=== PATIENT | male | born 1980 | race Caucasian/White ===

== ENCOUNTER 2016-11-01 10:38 | Observation (INO) | payer OTHER ==
[2016-11-01] MEDS ORDERED: diPHENhydraMINE PO* 25 MG ONE (12:08)
[2016-11-01] MEDS ORDERED: Diazepam TAB(*) 5 MG ONE (12:08)
[2016-11-01] MEDS ORDERED: VERAPAMIL 2.5 MG/ML 4 ML VIAL ONE (12:17)
[2016-11-01] MEDS ORDERED: fentaNYL* 50 MCG/ML 2 ML VIAL (100 MCG VIAL) ONE ×3 (12:17→13:51)
[2016-11-01] MEDS ORDERED: Heparin(*) 1000 UNIT/ML 10 ML VIAL CATH LAB IV ONE (12:17)
[2016-11-01] MEDS ORDERED: Midazolam* 1 MG/ML 5 ML VIAL (5 MG) ONE (12:17)
[2016-11-01] MEDS ORDERED: Heparin 2 UNITS/ML IVPREMIX* 2,000 ML IV ONE (12:18)
[2016-11-01] MEDS ORDERED: Iohexol 350 (CONTRAST) 200 ML MDV IV ONE (12:18)
[2016-11-01] MEDS ORDERED: Lidocaine 1% INJ* 10 MG/ML 30 ML SDV ONE (12:18)
[2016-11-01] MEDS ORDERED: nitroGLYCERIN DRIP* 250 ML ONE (12:18)
[2016-11-01] MEDS ORDERED: Ticagrelor* 90 MG TAB PO ONE (13:30)
[2016-11-01] MEDS ORDERED: Nitroglycerin TAB 0.4 MG* 0.4 MG TAB SL PRN ×2 (14:46→15:15)
[2016-11-01] MEDS: Aspirin Low Dose CHEW TAB* 81 MG PO SCH (16:18)
[2016-11-01] MEDS: Carvedilol TAB* 6.25 MG PO SCH (16:18)
[2016-11-01] MEDS ORDERED: INSULIN REGULAR SUBCUT SCH (16:30)
[2016-11-01] MEDS: Pantoprazole TAB (NF) 40 MG TAB PO SCH (17:45)
[2016-11-02 05:47] LABS: Hematocrit 49 % (42-52); Hemoglobin 16.8 g/dl (14.0-18.0); Mean Corpuscular HGB Conc 34 g/dl (31-36); Mean Corpuscular Hemoglobin 30 pg (27-31); Mean Corpuscular Volume 88 fL (80-94); Mean Platelet Volume 9 um3 (7.4-10.4); Red Blood Count 5.54 10^6/ul (4.0-5.4); Red Cell Distribution Width 13 % (10.5-15); White Blood Count 8.3 10^3/ul (3.5-10.8)
[2016-11-02 06:08] LABS: Albumin 4.3 g/dL (3.2-5.2); BUN/Creatinine Ratio 18.9 (8-20); Calcium 9.4 mg/dL (8.6-10.3); EGFR Non-African American 90.2 (>60); Globulin 3.3 g/dL (2-4); HDL Cholesterol 28.3 mg/dL; Potassium 3.7 mmol/L (3.5-5.0); Total Bilirubin 0.5 mg/dL (0.2-1.0); Total Protein 7.6 g/dL (6.4-8.9)
[2016-11-02] MEDS: Carvedilol TAB* 6.25 MG PO SCH (08:12)
[2016-11-02] MEDS: Aspirin Low Dose CHEW TAB* 81 MG PO SCH (08:13)
[2016-11-02] MEDS: Pantoprazole TAB (NF) 40 MG TAB PO SCH (08:13)
[2016-11-02] MEDS ORDERED: Citalopram TAB* 20 MG PO SCH (09:00)
[2016-11-02] MEDS ORDERED: Aspirin Low Dose CHEW TAB* 81 MG PO SCH (09:00)
[2016-11-02] MEDS ORDERED: CMCS: Prasugrel (NF) 10 MG PO SCH (09:00)
[2016-11-02] MEDS ORDERED: Ramipril CAP* 2.5 MG PO SCH (09:00)
[2016-11-02] MEDS ORDERED: Atorvastatin* 40 MG TAB PO SCH (09:00)
[2016-11-02 09:15] VITALS: BP 145/90
[2016-11-02] MEDS ORDERED: buPROPion TAB* 100 MG PO SCH (21:00)
--- NOTE | 2016-11-02 22:18 | DS ---
DISCHARGE SUMMARY: DATE OF ADMISSION: 11/01/16 DATE OF DISCHARGE: 11/02/16 PRIMARY CARE PHYSICIAN: TRACEY Daniels WATER SOFTENER SERVICE SUPERVISOR: Vignesh Ybarra DO DISCHARGE DIAGNOSES: 1. Unstable angina 2. Prior coronary artery stenting. 3. Diabetes type 2. 4. Morbid obesity. 5. Hyperlipidemia. 6. Obstructive sleep apnea. CONDITION ON DISCHARGE: Stable. PROCEDURES: Cardiac cath, stent placement, LAD with IVUS guidance 3.25 x 23 Xience drug-eluting stent, right radial artery access. DISCHARGE MEDICATIONS: Unchanged. 1. Aspirin 81 mg daily. 2. Lipitor 40 daily. 3. Wellbutrin 100 mg b.i.d. 4. Carvedilol 6.25 b.i.d. 5. Celexa 20 mg q.a.m. 6. Nitroglycerin 0.4 sublingual p.r.n. 7. Protonix 40 mg daily. 8. Effient 10 mg daily. 9. Altace 2.5 mg daily. 10. The patient has a self adjusted insulin pump. ACTIVITY: No strenuous exertion for 2 days to minimize by arm use without lifting for 2 days. Follow up as scheduled with Dr. Ybarra for wound check. To walk 30 minutes briskly daily. HISTORY: He presented with new onset of angina, functional class 3, stress imaging was high risk with anterior ischemia. He underwent outpatient catheterization. He has had previous stenting of the LAD in the mid and proximal portion, a year ago had repeat intervention for proximal stent in- stent restenosis and placement of a new more proximal LAD stent. LABORATORY DATA: CBC on 11/01/16 was normal, remained normal post PCI. Chemistry, 11/01/16: Random sugar 116, normal potassium, creatinine 0.87. Cholesterol 134, triglycerides 360, LDL 34, HDL 28.3 on Lipitor 40. EKG - 11/01/16: Normal tracing, post PCI unchanged. HOSPITAL COURSE: He underwent outpatient catheterization via the radial approach without complications, was found to have an 80% in-stent restenosis in the mid LAD stent, which was evaluated with IVUS. The proximal stents had no restenosis. Distal reference diameter was 3.3 x 3.8, the mid LAD stent placed 2 years ago was a 2.75 mm stent. A 3.25 x 23 Xience drug-eluting stent was therefore deployed and post dilated to high pressure, 18 atmospheres, after which minimal luminal diameter was approximately 3 x 3 with an area of 6.25 square millimeters with excellent apposition, and no residual significant stenosis with normal flow. Postprocedure, he has been without chest pain, heart failure, arrhythmias. He has been discharged to outpatient followup. His restenosis was likely due to a combination of negative remodelling and an undersized stent. CC: TRACEY Daniels; Vignesh Ybarra DO* [id number]/[facility] #: [id number] [facility]
--- NOTE | 2016-11-03 19:20 | CATH ---
CC: TRACEY Daniels; Dr. Ybarra Amended report to enter date of procedure. STENT REPORT: DATE OF PROCEDURE: 11/01/16. PRIMARY: TRACEY Daniels. LOSS PREVENTION OPERATIONS MANAGER: Dr. Ybarra. PROCEDURES: Right radial artery access, bilateral selective coronary cineangiography, left heart catheterization. IVUS evaluation, left main and LAD. Stent placement, mid LAD, 3.25 x 23 Xience drug-eluting stent. HISTORY: A 35-year-old type 2 diabetic with morbid obesity, with previous LAD intervention on 05/10/15 with placement of 3 drug-eluting stents with 2 in the proximal and 1 in the mid LAD. The mid LAD stent was a 2.75 x 16. Proximally, he had a 3 x 20 and 3 x 8. He had redo cath, 01/04, with in-stent restenosis as well as a more proximal LAD stenosis. He received a 2.75 x 12 Xience drug- eluting stent, the in-stent restenosis was treated with a 2.5 x 20 cutting balloon after which a 2.5 x 12 Xience drug-eluting stent was deployed. He now presents with 2 weeks of class III angina, Lexiscan was high risk with anterior wall ischemia. He was referred for catheterization. PROCEDURE ACCESS: Right radial artery. SHEATH: 6-F slender. MEDICATIONS: 1. Subcu lidocaine. 2. IV Versed. 3. IV fentanyl. 4. Heparin 3000 units. 5. Verapamil 3 mg. 6. Nitroglycerin 300 mcg IA. 7. Additional heparin 5000 units. 8. Brilinta 180 mg p.o. loading dose. 9. IC nitroglycerin 200 mcg pre-IVUS. DIAGNOSTIC CATHETERS: 5F TIG4, 6FL 3.5. LV gram was not performed. The aortic valve was crossed with a diagnostic catheter. After diagnostic angiography, IVUS evaluation of the LAD was performed using a 3-Wolof OptiCross catheter through a 6FL 3.5 Voda over a 14 BMW wire. Initial IVUS demonstrated distal reference diameter of 3.3 x 3.8 for an area of 7.17 sq mm, the minimal luminal area within the mid LAD stent was 3.38 sq mm, approximately 2 x 2 mm. There was negative remodelling at the site of in-stent restenosis as well as undersizing of the stent. A 3.5 x 23 Xience drug-eluting stent was deployed across the in-stent restenosis and then postdilated with a noncompliant balloon to 16 atmospheres. Because of incomplete expansion, it was then dilated to 18 atmospheres. Repeat IVUS demonstrated a minimal luminal area of 6.25 with 2.7 x 2.9 mm diameters with excellent pad position. IVUS showed no dissection. The more proximal LAD stents showed good expansion and apposition. The most proximal stent is somewhat undersized at approximately 3 x 3 with a proximal reference diameter of 4 x 4. There is; however, no significant luminal stenosis. HEMODYNAMICS: Initial BP 150/81, LV 109/88, no aortic valve gradient on pullback. ANGIOGRAPHY: RCA: The RCA is felt to be small, nondominant, supplies only an RV branch. It has no stenosis. Left main: The left main is very short, has no stenosis. LAD: The LAD is moderate, has previously placed proximal stents which jailed the first diagonal. The mid LAD stent has a proximal, gradually tapering stenosis which is maximal at 80% to 90% in mid portion. Distally the LAD wraps around the apex, has LAWRENCE-2 flow. Circumflex: The circumflex is dominant, large, with a trivial ramus, large first marginal, smaller second marginal, it ends with small circumflex PDA which is relatively short as the LAD supplies the distal third to half of the infraapical segment. After IVUS-guided mid LAD stent placement, there was negative residual stenosis , normal antegrade flow, no dissection. Distal flow is LAWRENCE-3. CONCLUSION: 1. High-grade late in-stent restenosis mid LAD, excellent angiographic result with IVUS-guided repeat drug-eluting stent placement with upsizing of the stent. Restenosis in part due to undersizing and in part due to negative remodelling. The proximal LAD stents have no stenosis, but the most proximal one is undersized. 2. Normal left-sided hemodynamics. 3. Successful right radial artery access. [id number]/[facility] #: [id number] SOURAV
== END 2016-11-02 11:21 | disposition home or self-care (01) ==
LOC: CHICATH 10:38 → INTOOBSV 14:16 → ICU 14:16
PROVIDERS: ADMIT Internal Medicine Cardiovascular Disease; ATTEND Internal Medicine Cardiovascular Disease
DX: I20.0 Unstable angina (principal); E11.9 Type 2 diabetes mellitus without complications; E78.5 Hyperlipidemia, unspecified; E66.01 Morbid (severe) obesity due to excess calories; G47.33 Obstructive sleep apnea (adult) (pediatric); Z95.5 Presence of coronary angioplasty implant and graft; Z79.899 Other long term (current) drug therapy
CPT/HCPCS: 36415; 80048; 80053; 80061; 85025; 85610; 85730; 87641; 93005; 93458; A9270-GY; C1725; C1753; C1769; C1876; C1887; C9600-LD; G0378; J1644; J2250; J3010

== ENCOUNTER 2018-09-20 06:28 | Day surgery (SDC) | payer OTHER ==
--- NOTE | 2018-09-06 06:44 | HP ---
CC: Roe Velez MD; Vignesh Ybarra DO; [facility] * ADMISSION HISTORY AND PHYSICAL: DATE OF ADMISSION: 09/20/18 ATTENDING SURGEON: Christina Mario MD * (MORRIS Guthrie, dictating) CHIEF COMPLAINT: Papillary carcinoma, left thyroid. HISTORY OF PRESENT ILLNESS: This is a 37-year-old morbidly obese diabetic male on insulin pump with history of coronary artery disease, who was referred by his manager cable Dr. Ybarra for a carotid arterial duplex study for the indication of generalized weakness. That study was done on 03/06/18 and did show a moderate (greater than 50%) right internal carotid artery stenosis. The left side was less than 50% stenosis. An incidental finding was that of a suspicious left thyroid lobe lesion. A dedicated ultrasound of the thyroid on 04/09/18 showed a high suspicion lesion in the left lower lobe measuring 0.9 x 0.9 x 1.3 cm with calcifications. There was also an intermediate suspicious lesion in the left upper lobe measuring 0.7 x 0.8 x 0.1 cm and a high suspicion lesion in the right mid thyroid which is described as heterogeneous and hypoechoic measuring 0.8 x 0.8 x 0.7 cm with microcalcifications (this latter lesion will be observed as it does not meet the criteria for biopsy in as much as it is less than 1 cm in size). An ultrasound-guided biopsy of the left lower lobe lesion on 04/25/18 returned suspicious for papillary carcinoma (see separate report). The patient has been seen by Dr. Velez who follows him for his diabetes management and also by Dr. Mario in the thyroid clinic. Her exam was notable for being unable to palpate any distinct masses in the thyroid gland. There is no known family history of thyroid or endocrine cancer. The patient has not had any symptoms of hyper or hypothyroidism other than weight gain which has been a chronic but stable problem. He was seen by his manager cable, Dr. Ybarra, who felt that no additional testing was necessary prior to proceeding with surgery (see separate note). He has also been seen by his primary care office and I reviewed those instructions with him as well. The patient understands the indications for surgery, the risks, benefits and alternatives and would like to proceed as scheduled with left thyroid lobectomy. PAST MEDICAL HISTORY: 1. Type 2 diabetes (on insulin pump). 2. Morbid obesity. 3. 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 4. Depression. PAST SURGICAL HISTORY: Includes: 1. 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 2. Bilateral carpal tunnel release. CURRENT MEDICATIONS: 1. Humulin U 500 via insulin pump with the basal rate ranging between 1 to 2 units per hour and bolus does seem based on carbohydrate counting at meals and snacks ranging from 5 to 12 units. He was instructed by Dr. Velez's office to decrease his basal rate to one half the morning of surgery and to hold boluses which will be managed by the Anesthesia and operating team. 2. Effient 5 mg once daily (his last dose will be 09/13/18). 3. Aspirin 81 mg once daily which he will continue during the perioperative period. 4. Fish oil 1000 mg b.i.d. which he will hold for 3 to 5 days preoperatively. 5. Escitalopram 20 mg once daily. 6. Bupropion 100 mg b.i.d. 7. Atorvastatin 40 mg daily. 8. Ramipril 2.5 mg daily. 9. Carvedilol 6.25 mg b.i.d. 10. Victoza 1.8 mg subcutaneously daily (the patient will hold for 24 hours before surgery). 11. Omeprazole 40 mg once daily. 12. Qeac-ilk-vgsyoui potassium chloride 99 mg once daily. 13. He also takes vitamin D, multivitamin, and glucosamine supplements. DRUG ALLERGIES: METFORMIN (GI side effects), GLIPIZIDE (GI side effects), ERYTHROMYCIN (GI side effects), BRILINTA (shortness of breath). FAMILY HISTORY: Negative for anesthesia problems, bleeding or clotting disorders. SOCIAL HISTORY: The patient lives with his significant other who is present today. He works in [employer]. He quit smoking in 2014. He drinks less than 1 drink per week. He denies any recreational drug use. REVIEW OF SYSTEMS: General: No recent constitutional symptoms or acute illnesses other than described above. HEENT: No additions. Cardiovascular: No chest pain, palpitations. See separate note from Dr. Ybrara. He does have a prescription for sublingual nitroglycerin but has not required it. Respiratory: No history of asthma, chronic cough or shortness of breath. GI: No problems reported. He did undergo a colonoscopy 7 years ago but that was a normal study and with no significant interval symptoms. : No problems reported. Endocrine: See the note from Jerald Nolasco at Dr. Velez's office. His most recent A1c was 8.2. Hematological/Oncological: As above per HPI. No additions. Musculoskeletal: No problems reported. Neuro/Psych: No additions. PHYSICAL EXAMINATION GENERAL: Well-nourished, morbidly obese male, in no acute distress. VITAL SIGNS: Height 70 inches, weight 310 pounds, BMI 48.5. Temperature 99.1, blood pressure 140/82, pulse 84, respirations 18. HEENT: Pupils are equal, round, and reactive. EOMs intact. No conjunctival pallor. Oropharynx: Teeth in good repair. No intraoral lesions. NECK: No lymphadenopathy, thyromegaly or masses. No discrete palpable nodules. No palpable lymphadenopathy. LUNGS: Clear to auscultation. No wheezes. HEART: Regular rate and rhythm. No murmur noted. ABDOMEN: Soft, nontender to palpation. No palpable masses or organomegaly. GENITALIA: Not done. RECTAL: Not done. BACK: No spinous process or CVA tenderness. EXTREMITIES: No edema. NEUROLOGICAL: Grossly intact. SKIN: Warm and dry. No suspicious rashes or lesions. 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 PLAN: Left thyroid lobectomy. MORRIS GUTHRIE [id number]/[facility] #: [id number] [facility]ITALGutierrez
[~2018-09-20 06:28] MED LIST: Buffered Lidocaine 0.9% SYRIN* 5 ML/SYR SYRINGE INTRADERM ONE; Famotidine IV* 10 MG/ML 2 ML (20 mg) IV ONE; Ketorolac INJ* 30 MG/ML 1 ML VIAL IV PUSH ONE
[2018-09-20] MEDS ORDERED: ceFAZolin 1 GM in Dextrose (*) 1 GM/50 ML BAG IVPB ONE (07:23)
[2018-09-20] MEDS ORDERED: Famotidine IV* 10 MG/ML 2 ML (20 mg) ONE (07:23)
[2018-09-20] MEDS ORDERED: ceFAZolin 2 GM PREMIX in ORs 2 GM/50 ML BAG IVPB ONE (07:23)
[2018-09-20] MEDS ORDERED: Midazolam* 1 MG/ML 5 ML VIAL (5 MG) ONE (08:04)
[2018-09-20] MEDS ORDERED: Lidocaine 2% PF * 5 ML VIAL ONE (08:04)
[2018-09-20] MEDS ORDERED: Propofol* 10 MG/ML 20 ML BTL ONE (08:04)
[2018-09-20] MEDS ORDERED: Rocuronium* 10 MG/ML VIAL ONE ×2 (08:04→11:09)
[2018-09-20] MEDS ORDERED: fentaNYL* 50 MCG/ML 5 ML VIAL (250 MCG VIAL) ONE (08:04)
[2018-09-20] MEDS ORDERED: Bupivacaine 0.25% EPI 200,000* 30 ML SDV ONE (08:09)
[2018-09-20] MEDS ORDERED: Phenylephrine INJ* 10 MG/ML 1 ML VIAL (10 MG) ONE ×2 (09:31→10:07)
[2018-09-20] MEDS ORDERED: fentaNYL* 50 MCG/ML 2 ML VIAL (100 MCG VIAL) ONE ×5 (09:59→13:02)
[2018-09-20] MEDS ORDERED: Glycopyrrolate IV* 0.2 MG/ML 1 ML VIAL ONE (10:03)
[2018-09-20] MEDS ORDERED: PROCHLORPERAZINE INJ 5 MG/ML 2 ML VIAL IV PRN (11:24)
[2018-09-20] MEDS ORDERED: Naloxone* 0.4 MG/ML 1 ML VIAL IV PRN (11:24)
[2018-09-20] MEDS ORDERED: HYDROcodone/ACETAMIN 5-325 MG* 1 TAB PO PRN (11:24)
[2018-09-20] MEDS ORDERED: oxyCODONE/Acetamin 5/325 MG* TAB PO PRN (11:24)
[2018-09-20] MEDS ORDERED: Ondansetron INJ* 2 MG/ML VIAL ONE (11:42)
[2018-09-20] MEDS ORDERED: Sugammadex * 200 MG/2 ML VIAL IV PUSH ONE ×2 (11:43→11:44)
[2018-09-20] MEDS ORDERED: Metoprolol Tartrate IV* 1 MG/ML 5 ML VIAL ONE (12:00)
[2018-09-20] MEDS ORDERED: HYDROcodone/ACET. 7.5/325 LIQ* 15 ML UDC PO PRN (12:17)
[2018-09-20] MEDS ORDERED: Labetalol IV* 5 MG/ML 20 ML VIAL ONE (12:19)
[2018-09-20] MEDS: fentaNYL* 50 MCG/ML 2 ML VIAL (100 MCG VIAL) IV PRN ×4 (12:37→13:11)
[2018-09-20] MEDS ORDERED: hydrALAZINE IV* 20 MG/ML VIAL IV SLOW PU PRN (12:53)
[2018-09-20] MEDS ORDERED: hydrALAZINE IV* 20 MG/ML VIAL ONE (12:56)
[2018-09-20] MEDS ORDERED: PROCHLORPERAZINE INJ 5 MG/ML 2 ML VIAL ONE (13:34)
[2018-09-20] MEDS ORDERED: oxyCODONE ORAL.SOLN* 5 MG/5 ML UDC ONE (13:55)
--- NOTE | 2018-09-20 14:29 | BRIEFOPN ---
Brief Operative Note - Surgery Procedures: 09/20/18 Op Note Pre-op dx: suspicious left thyroid nodule Post-op dx: same Procedure: left connor-thyroidectomy Surgeon: Fabiano Asst: Lin Zavala Anesth: general EBL: 50 cc Complications: none SCDs on during surgery Abx: given pre-op Pt. tolerated procedure well and was transferred to in a stable condition. CLFoster
[2018-09-20] MEDS ORDERED: Ketorolac INJ* 30 MG/ML 1 ML VIAL ONE (16:31)
[2018-09-20 16:59] VITALS: BP 148/79
--- NOTE | 2018-09-21 08:40 | OP ---
CC: Dr. Roe Velez * DATE OF OPERATION: 09/20/18 - [facility] DATE OF : 80 SURGEON: Christina Mario MD PRE-OP DIAGNOSIS: A suspicious thyroid nodule in left lobe of thyroid gland prompting the plan for surgical intervention. POST-OP DIAGNOSIS: OPERATIVE PROCEDURE: Left hemithyrdoidectomy DESCRIPTION OF PROCEDURE: He was brought to the operating room, placed on the OR table in the supine position and given general anesthesia. The neck was prepped and draped in the usual sterile fashion. Positioning was complicated by the patient's body habitus, which prevented good extension of the neck; however, after infiltrating with local anesthetic, an incision was made along the line that had been marked preoperatively and subcutaneous tissue was divided with electrocautery through the platysma muscle. Flaps were developed superiorly to the thyroid notch and inferiorly to the sternal notch and then the strap muscles were divided along the midline. They were retracted over the left lobe of the thyroid gland and attention was turned first to the upper pole. Here, vessels that approached the gland were divided between LigaSure and clip on the medial aspect extending to the apex of the superior pole and somewhat laterally. Then, attention was turned to the inferior pole and again vessels that were approaching the gland were divided. This was done with LigaSure primarily and then the middle portion of the gland was attended to and here blunt dissection was used to identify first the superior pole parathyroid, which was attached to the thyroid gland and this was dissected free from thyroid gland using blunt dissection and LigaSure. Then, the recurrent laryngeal nerve was identified and finally an inferior pole parathyroid was identified. These structures were preserved during the surgery. The gland was noted to be adherent to the trachea, so it was somewhat difficult to elevate it off the trachea, but careful blunt dissection eventually allowed elevation of the gland of the trachea and then cautery was used to divide it from the trachea. It avulsed from the distal end of the isthmus and was handed off as a specimen. The avulsed stump was cauterized. The wound was inspected for hemostasis, which appeared to be adequate. Surgicel was placed in the thyroid bed. Closure was accomplished using 3-0 Vicryl to reapproximate the strap muscles, 4-0 Vicryl to reapproximating the platysma muscle and the skin was closed with 4-0 Prolene in a subcuticular fashion. Steri-Strips and a dry fluffy dressing were applied. All sponge and instrument counts were correct. The patient tolerated the procedure well and was transferred to Recovery in a stable condition. [id number]/[facility] #: [id number] [facility]
== END 2018-09-20 17:00 | disposition home or self-care (01) ==
LOC: OR 06:28
PROVIDERS: ATTEND Surgery
DX: C73 Malignant neoplasm of thyroid gland (principal); E11.9 Type 2 diabetes mellitus without complications; Z79.4 Long term (current) use of insulin; Z96.41 Presence of insulin pump (external) (internal); I25.10 Atherosclerotic heart disease of native coronary artery without angina pectoris; I65.21 Occlusion and stenosis of right carotid artery; Z95.5 Presence of coronary angioplasty implant and graft; E66.01 Morbid (severe) obesity due to excess calories; F32.9 Major depressive disorder, single episode, unspecified; I10 Essential (primary) hypertension
CPT/HCPCS: 88307; A9270-GY; J0360; J0690; J0780; J1885; J2250; J2405; J2704; J3010; J3490